=== PATIENT | female | born 1990 | race Caucasian/White ===

== ENCOUNTER 2017-10-09 00:45 | Emergency (ER) | payer OTHER ==
[2017-10-09] MEDS ORDERED: KETOROLAC 30 MG/ML 1 ML VIAL IVP STA (01:07)
[2017-10-09] MEDS ORDERED: SODIUM CHLORIDE 0.9% 1,000 ML IV STA (01:07)
[2017-10-09 01:46] LABS: Basophils % (A) 1 %; Eosinophils # (A) 0.2 k/uL (0-0.7); Eosinophils % (A) 2 %; HGB 12.1 gm/dL (11.4-16.0); Lymphocytes % (A) 30 %; MCH 29.7 pg (25.0-35.0); MCHC 31.9 g/dL (31.0-37.0); Mean Platelet Volume 10.2; Monocytes # (A) 0.4 k/uL (0-1.0); Monocytes % (A) 5 %; Neutrophils % (A) 60 %; Platelet Count 122 k/uL (150-450); RBC 4.09 m/uL (3.80-5.40); RDW 12.4 % (11.5-15.5); WBC 6.7 k/uL (3.8-10.6)
[2017-10-09 01:50] LABS: Appearance,Urine Cloudy (Clear); Bilirubin,Urine Negative (Negative); Blood,Urine Moderate (Negative); Color,Urine Yellow; Glucose,Urine (UA) Negative (Negative); Ketones,Urine Negative (Negative); Leukocyte Esterase,Urine Moderate (Negative); Mucus,Urine Occasional /hpf; Nitrite,Urine Negative (Negative); Protein,Urine 1+ (Negative); RBC,Urine 4 /hpf (0-5); Specific Gravity,Urine 1.029 (1.001-1.035); Squamous Epithelial Cell,Urine 22 /hpf (0-4); WBC,Urine 30 /hpf (0-5)
[2017-10-09 02:00] LABS: ALT 29 U/L (9-52); AST 19 U/L (14-36); Albumin 4.1 g/dL (3.5-5.0); Alkaline Phosphatase 54 U/L (38-126); Anion Gap 12 mmol/L; Blood Urea Nitrogen 14 mg/dL (7-17); Carbon Dioxide 22 mmol/L (22-30); Chloride 110 mmol/L (98-107); Glucose 92 mg/dL (74-99); Potassium 3.8 mmol/L (3.5-5.1); Sodium 144 mmol/L (137-145); Total Bilirubin 0.2 mg/dL (0.2-1.3); Total Protein 6.5 g/dL (6.3-8.2)
--- NOTE | 2017-10-09 02:00 | CT ---
EXAMINATION TYPE: CT brain wo con DATE OF EXAM: 10/09/2017 COMPARISON: NONE HISTORY: Headache and dizziness CT DLP: 1029.90 mGycm. Automated Exposure Control for Dose Reduction was Utilized. TECHNIQUE: CT scan of the head is performed without contrast. FINDINGS: Ventricles and sulci appear normal. There is no mass effect nor midline shift. There is n o sign of intracranial hemorrhage. Calvarium appears normal. Cerebellar tonsils project up to the for amen magnum. CONCLUSION: Cerebellar tonsils extend down to the foramen magnum. I think this is slightly less than a Chiari mal formation. Otherwise negative exam.
[2017-10-09 02:56] VITALS: BP 117/65; PULSE 70; RESP 16; TEMP 98.5
--- NOTE | 2017-10-09 03:15 | ED ---
Headache HPI - General Chief Complaint: Headache Stated Complaint: Headache, Dizziness Time Seen by Provider: 10/09/17 00:58 Mode of arrival: ambulatory Limitations: no limitations - History of Present Illness Initial Comments: 27-year-old male patient presents to the emergency department today for evaluation of headache 3 days. Patient states that the headache has been more intense over the last couple of days with most of the pain being present over her left eye and the left side of her head. Patient states he is also had some blurred vision with black spots during this. States that she has had episodes of dizziness upon standing as well. Patient denies any fever or chills. Denies any nasal congestion, sore throat, cough, or fevers. Denies any history of headaches. Denies any nausea, vomiting, weakness, numbness, or tingling with this. Patient denies any recent rash, shortness breath, chest pain, abdominal pain, diarrhea, constipation, back pain, hematuria, dysuria, urinary urgency, urinary frequency, headache, visual changes, or any other complaints. Denies any chance of , states she has had a tubal ligation and is currently on her period. - Related Data Home Medications Medication Instructions Recorded Confirmed No Known Home Medications [No 10/09/17 10/09/17 Known Home Medications] Allergies Allergy/AdvReac Type Severity Reaction Status Date / Time No Known Allergies Allergy Verified 10/09/17 00:54 Review of Systems ROS Statement: Those systems with pertinent positive or pertinent negative responses have been documented in the HPI. ROS Other: All systems not noted in ROS Statement are negative. Past Medical History Past Medical History: No Reported History History of Any Multi-Drug Resistant Organisms: None Reported Past Surgical History: Tubal Ligation Additional Past Surgical History / Comment(s): abdominal-IUD removal Past Psychological History: No Psychological Hx Reported Smoking Status: Current every day smoker Past Alcohol Use History: None Reported Past Drug Use History: None Reported General Exam Limitations: no limitations General appearance: alert, in no apparent distress, other (This is a well- developed, well-nourished adult female patient in no acute distress. Vital signs upon presentation are temperature 98.5F, pulse 91, respirations 16, blood pressure 137/72, pulse ox 100% on room air.) Eye exam: Present: normal appearance, PERRL, EOMI. Absent: scleral icterus, conjunctival injection, periorbital swelling ENT exam: Present: normal exam, normal oropharynx, mucous membranes moist Neck exam: Present: normal inspection, full ROM, other (Palpable lymph node to the left occipital region, less than 1 cm.). Absent: tenderness, meningismus, lymphadenopathy Respiratory exam: Present: normal lung sounds bilaterally. Absent: respiratory distress, wheezes, rales, rhonchi, stridor Cardiovascular Exam: Present: regular rate, normal rhythm, normal heart sounds. Absent: systolic murmur, diastolic murmur, rubs, gallop, clicks GI/Abdominal exam: Present: soft, normal bowel sounds. Absent: distended, tenderness, guarding, rebound, rigid Neurological exam: Present: alert, oriented X3, CN II-XII intact Psychiatric exam: Present: normal affect, normal mood Skin exam: Present: warm, dry, intact, normal color. Absent: rash Course Vital Signs 10/09/17 10/09/17 10/09/17 00:49 00:58 02:53 Temperature 98.5 F 98.1 F 98.5 F Pulse Rate 91 94 70 Respiratory 16 14 16 Rate Blood Pressure 137/72 109/58 117/65 O2 Sat by Pulse 100 100 98 Oximetry Medical Decision Making - Medical Decision Making 27-year-old female patient presents to the emergency department today for complaints of headache 3 days. Physical examination is unremarkable. Patient is neurologically intact. Labs reviewed and were unremarkable. Urinalysis is consistent with current menses. CT of the brain was performed and did show the cerebellar tonsils protruding down into the foramen magnum. Impression by Dr. Mayes shows that this is slightly less than a chiari malformation. I did discuss the findings with the patient. Did discuss importance of follow-up with neurology for further evaluation. Return parameters were discussed in detail. She verbalizes understanding and agreed with this plan. - Lab Data Result diagrams: 10/09/17 01:30 10/09/17 01:30 Lab Results 10/09/17 10/09/17 10/09/17 Range/Units 01:30 01:30 01:30 WBC 6.7 (3.8-10.6) k/uL RBC 4.09 (3.80-5.40) m/uL Hgb 12.1 (11.4-16.0) gm/dL Hct 38.0 (34.0-46.0) % MCV 93.0 (80.0-100.0) fL MCH 29.7 (25.0-35.0) pg MCHC 31.9 (31.0-37.0) g/dL RDW 12.4 (11.5-15.5) % Plt Count 122 L (150-450) k/uL Neutrophils % 60 % Lymphocytes % 30 % Monocytes % 5 % Eosinophils % 2 % Basophils % 1 % Neutrophils # 4.0 (1.3-7.7) k/uL Lymphocytes # 2.0 (1.0-4.8) k/uL Monocytes # 0.4 (0-1.0) k/uL Eosinophils # 0.2 (0-0.7) k/uL Basophils # 0.0 (0-0.2) k/uL Sodium 144 (137-145) mmol/L Potassium 3.8 (3.5-5.1) mmol/L Chloride 110 H (98-107) mmol/L Carbon Dioxide 22 (22-30) mmol/L Anion Gap 12 mmol/L BUN 14 (7-17) mg/dL Creatinine 0.70 (0.52-1.04) mg/dL Est GFR (CKD-EPI)AfAm >90 (>60 ml/min/1.73 sqM) Est GFR (CKD-EPI)NonAf >90 (>60 ml/min/1.73 sqM) Glucose 92 (74-99) mg/dL Calcium 9.0 (8.4-10.2) mg/dL Total Bilirubin 0.2 (0.2-1.3) mg/dL AST 19 (14-36) U/L ALT 29 (9-52) U/L Alkaline Phosphatase 54 (38-126) U/L Total Protein 6.5 (6.3-8.2) g/dL Albumin 4.1 (3.5-5.0) g/dL Urine Color Yellow Urine Appearance Cloudy H (Clear) Urine pH 7.0 (5.0-8.0) Ur Specific [place] 1.029 (1.001-1.035) Urine Protein 1+ H (Negative) Urine Glucose (UA) Negative (Negative) Urine Ketones Negative (Negative) Urine Blood Moderate H (Negative) Urine Nitrite Negative (Negative) Urine Bilirubin Negative (Negative) Urine Urobilinogen 3.0 (<2.0) mg/dL Ur Leukocyte Esterase Moderate H (Negative) Urine RBC 4 (0-5) /hpf Urine WBC 30 H (0-5) /hpf Ur Squamous Epith Cells 22 H (0-4) /hpf Urine Mucus Occasional H (None) /hpf - Radiology Data Radiology results: report reviewed, image reviewed CT of the head is performed without contrast. Findings show ventricles and sulci appear normal. There is no mass effect or midline shift. There is no sign of intracranial hemorrhage. Calvarium appears normal. Cerebellar tonsils project up into the forearm and magnum. Conclusion by Dr. Mayes shows cerebellar tonsils extending down to the forearm and magnum. I think this is slightly less than the Chiari malformation. Otherwise negative exam. Disposition Clinical Impression: Headache Disposition: HOME SELF-CARE Condition: Good Instructions: Acute Headache (ED) Additional Instructions: CT results showed possible Arnold Chiari Malformation. Follow up with neurology for re-evaluation as soon as possible. Return here immediately for any new, worsening or concerning symptoms. Is patient prescribed a controlled substance at d/c from ED?: No Referrals: Lan Haney Jr, DO [Primary Care Provider] - 1-2 days Ekaterina Garrett MD [STAFF PHYSICIAN] - 1-2 days Time of Disposition: 03:15
== END 2017-10-09 03:36 | disposition home or self-care (01) ==
LOC: EC 00:45
DX: R51 Headache (principal); R42 Dizziness and giddiness; H53.8 Other visual disturbances; F17.200 Nicotine dependence, unspecified, uncomplicated
CPT/HCPCS: 36415; 80053; 85025; 81001; 70450; 99284; 96374; 96361; J1885

== ENCOUNTER 2018-03-21 18:37 | Emergency (ER) | payer OTHER ==
[2018-03-21 18:57] VITALS: RESP 18
--- NOTE | 2018-03-21 19:26 | ED ---
Head Injury HPI - General Chief complaint: Head Injury Stated complaint: Head Injury Time Seen by Provider: 03/21/18 18:57 Source: patient, RN notes reviewed Mode of arrival: ambulatory Limitations: no limitations - History of Present Illness Initial comments: This is a 27-year-old female who presents to the emergency department with chief complaint of head injury. Patient states between noon and 1 PM this afternoon she was walking her dog outside. She states that the leash tripped her and she fell backwards, hitting the back of her head on the ground. Patient is accompanied by her stepson who contributes to history. He states that patient's head hit the ground, bounced back up and hit the ground a second time. He states that patient appeared dazed and was not making sense. He states that she attempted to go to sleep right there on the ground. He states that patient made her way to the house and went to sleep. Patient states that when her returned home he attempted to wake her up and he had difficulty doing so. Patient reports a generalized headache. She denies any dizziness, nausea or vomiting. Patient's stepson states that she did not fully lose consciousness. Patient states that a few months ago she was diagnosed with Chiari malformation. She states that she was supposed to follow up with a neurologist but was unable to do so because her insurance changed. Patient denies any fevers or chills, chest pain or shortness of breath. - Related Data Home Medications Medication Instructions Recorded Confirmed No Known Home Medications 10/09/17 10/09/17 Allergies/Adverse reactions: Allergies Allergy/AdvReac Type Severity Reaction Status Date / Time No Known Allergies Allergy Verified 10/09/17 00:54 Review of Systems ROS Statement: Those systems with pertinent positive or pertinent negative responses have been documented in the HPI. ROS Other: All systems not noted in ROS Statement are negative. Past Medical History Past Medical History: No Reported History History of Any Multi-Drug Resistant Organisms: None Reported Past Surgical History: Tubal Ligation Additional Past Surgical History / Comment(s): abdominal-IUD removal Past Psychological History: No Psychological Hx Reported Smoking Status: Current every day smoker Past Alcohol Use History: Rare Past Drug Use History: None Reported General Exam - General Exam Comments Initial Comments: General: Awake and alert, well-developed; in no apparent distress. Speech is soft and slow. HEENT: Head atraumatic, normocephalic. Pupils are equal, round and reactive to light. Extraocular movements intact. Oropharynx moist without erythema or exudate. Neck: Supple. Normal ROM. Cardiovascular: Regular rate and rhythm. No murmurs, rubs or gallops. Chest symmetrical. Respiratory: Lungs clear to auscultation bilaterally. No wheezes, rales or rhonchi. Normal respiratory effort with no use of accessory muscles. Musculoskeletal: Normal ROM, no tenderness, strength 5/5 bilateral upper and lower extremities. Ambulating normally. Skin: [place], warm and dry without rashes or lesions. Neurological: Alert and oriented x3. CN II-XII grossly intact. Speech is fluent and answers are appropriate. No focal neuro deficits. Romberg negative. Heel- to-eastman testing normal. Finger-nose testing normal. Rapid alternating movements normal. Psychiatric: Normal mood and affect. No overt signs of depression or anxiety noted. Limitations: no limitations Course Vital Signs 03/21/18 18:53 Temperature 98.4 F Pulse Rate 96 Respiratory 18 Rate Blood Pressure 123/81 O2 Sat by Pulse 100 Oximetry Medical Decision Making - Medical Decision Making This is a 27-year-old female who presents to the emergency department chief complaint of head injury. Patient reports feeling backwards earlier today and hitting the back of her head on the ground. Her substernal reports that she was dazed, was not making sense and was difficult to arouse while sleeping. Patient reports a generalized headache. Denies loss of consciousness, nausea or vomiting, dizziness. She does report a history of Chiari malformation. There are no focal neuro deficits on physical examination. A computed tomography scan of the brain was obtained which revealed no acute abnormalities. Patient likely suffering from a concussion. Return parameters were discussed. Patient is in no acute distress and will be discharged home at this time. She is in agreement and voices understanding. All questions answered. - Radiology Data Radiology results: report reviewed CT brain without contrast impression: Negative computed tomography scan of the brain. No change. Disposition Clinical Impression: Concussion without loss of consciousness Disposition: HOME SELF-CARE Condition: Good Instructions: Concussion (ED) Additional Instructions: Please follow up with primary care provider within 1-2 days. Return to emergency department if symptoms should worsen or any concerns arise. Is patient prescribed a controlled substance at d/c from ED?: No Referrals: Lan Haney Jr, DO [Primary Care Provider] - 1-2 days Time of Disposition: 19:52
--- NOTE | 2018-03-21 19:33 | CT ---
EXAMINATION TYPE: CT brain wo con DATE OF EXAM: 03/21/2018 COMPARISON: 10/09/2017 HISTORY: CHERRY AFTER FALL WITH HEAD INJURY CT DLP: 913.3 mGycm. Automated Exposure Control for Dose Reduction was Utilized. TECHNIQUE: CT scan of the head is performed without contrast. FINDINGS: Ventricles and sulci appear normal. There is no mass effect nor midline shift. There is no sign of intracranial hemorrhage. The calvarium is intact. IMPRESSION: Negative CT scan of the brain. No change.
[2018-03-21 19:59] VITALS: BP 107/55; PULSE 74; TEMP 97.8
== END 2018-03-21 19:59 | disposition home or self-care (01) ==
LOC: EC 18:37
DX: S06.0X0A Concussion without loss of consciousness, initial encounter (principal); F17.200 Nicotine dependence, unspecified, uncomplicated; Z87.798 Personal history of other (corrected) congenital malformations; W01.10XA Fall on same level from slipping, tripping and stumbling with subsequent striking against unspecified object, initial encounter; Y93.K1 Activity, walking an animal; Y92.89 Other specified places as the place of occurrence of the external cause
CPT/HCPCS: 70450; 99283

== ENCOUNTER → 2019-02-09 | Outpatient (CLI) | payer OTHER ==
[2019-02-09 14:10] LABS: HCT 42.6 % (34.0-46.0); HGB 13.8 gm/dL (11.4-16.0); MCH 31.2 pg (25.0-35.0); MCHC 32.4 g/dL (31.0-37.0); MCV 96.2 fL (80.0-100.0); Mean Platelet Volume 9.8; Platelet Count 142 k/uL (150-450); RBC 4.42 m/uL (3.80-5.40); RDW 12.7 % (11.5-15.5); WBC 7.2 k/uL (3.8-10.6)
[2019-02-09 14:30] LABS: African American GFR (CKD) >90 (>60 ml/min/1.73 sqM); Anion Gap 7 mmol/L; Blood Urea Nitrogen 11 mg/dL (7-17); Calcium 9.9 mg/dL (8.4-10.2); Carbon Dioxide 30 mmol/L (22-30); Chloride 104 mmol/L (98-107); Glucose 64 mg/dL (74-99); Non-African American GFR(CKD) >90 (>60 ml/min/1.73 sqM); Potassium 4.2 mmol/L (3.5-5.1); Sodium 141 mmol/L (137-145)
== END | disposition home or self-care (01) ==
LOC: LABPAT 13:39
PROVIDERS: ATTEND Podiatrist Foot & Ankle Surgery
DX: Z01.812 Encounter for preprocedural laboratory examination (principal)
CPT/HCPCS: 36415; 80048; 85027

== ENCOUNTER 2019-02-16 13:48 | Day surgery (SDC) | payer OTHER ==
[2019-02-11 15:10] VITALS: BMI 23.0
[~2019-02-16 13:48] MED LIST: DEXAMETHASONE SOD PHOSPHATE 10 MG/ML 1 ML VIAL IV ONE; LACTATED RINGERS 1,000 ML IV SCH; LIDOCAINE 1% 20 ML VIAL (10MG/ML) FOR IV START INTRADERMA PRN; MIDAZOLAM 2 MG/2 ML VIAL IV PRN; ONDANSETRON 4 MG/2 ML VIAL IVP ONE; Pre Op ABX Message 1 EACH MISC MISCELLANE ONE; fentaNYL (PF) 50 MCG/ML 2 ML AMP IV PRN
[2019-02-16 14:19] VITALS: RESP 16; TEMP 98
[2019-02-16] MEDS ORDERED: LIDOCAINE 1% INJ 10MG/ML (20 ML MDV) ONE (14:55)
[2019-02-16] MEDS ORDERED: fentaNYL (PF) 50 MCG/ML 2 ML AMP ONE (14:55)
[2019-02-16] MEDS ORDERED: MIDAZOLAM 2 MG/2 ML VIAL ONE (14:55)
[2019-02-16] MEDS ORDERED: PROPOFOL 10 MG/ML 20 ML VIAL IV ONE (14:55)
--- NOTE | 2019-02-16 15:44 | P.OP ---
Date of Procedure: 02/16/19 Preoperative Diagnosis: Plantar declination did fifth metatarsal right foot Postoperative Diagnosis: Same Procedure(s) Performed: V metatarsal elevating osteotomy fifth metatarsal right foot Surgeon: Dariel Adam Operative Findings: Unremarkable Description of Procedure: On the date of surgery the patient was taken to the operating room in good condition placed on the operating table in supine position where an IV was started. IV anesthetic agents were then utilized. Anesthesia was then supplemented with approximately 10 mL of 5% ropivacaine given in a Marsh block to the fifth ray complex of the patient's right foot. The patient's right foot and ankle were then prepped and draped in the usual aseptic manner At this point in time attention was directed to the right foot where the patient's right foot was elevated and exsanguinated of blood utilizing an Esmarch bandage and the ankle tourniquet to the right ankle was inflated to approximately 250 mmHg At this time attention was directed to the dorsal aspect of the distal one third of the shaft of the fifth metatarsal where an approximately 3 cm dorsolinear incision was made. The incision was deepened via sharp dissection down through the level of the subcutaneous tissue layers. All neurovascular structures encountered were identified isolated and were retracted and any bleeding vessels were clamped and electrocauterized. Throughout the surgical procedure copious amounts sterile saline solution was used to irrigate the surgical site Dissection was carried deep down to the level of the periosteal structures overlying the distal aspect of the fifth metatarsal these were incised in line with the original skin incision and underscored and retracted from the underlying bone the extensor digitorum longus tendon to the fifth toe was retracted medially. This exposed the metaphysis of the bone were using an oscillating bone saw a V osteotomy was performed at the level of the metaphysis this was a dorsal to plantar V osteotomy and upon completion of the osteotomy the capital fragment was displaced dorsally by approximately 2-3 mm it was impacted back upon the spike created by the osteotomy in fixated with a 0.045 K wire Periosteal Structures Were Then Coaptated and Maintained Utilizing 3-0 Vicryl Simple Interrupted Suture Subcutaneous Tissue Layers Were Coaptated and Maintained Utilizing 3-0 Vicryl Simple Interrupted Suture and the Skin Was Then Closed Utilizing 4-0 Nylon Simple Interrupted Suture. Adaptic Kerlix Fluffs four-inch conformer and 4 inch Coban was used to form a compression dressing and the ankle tourniquet to the patient's right ankle was deflated adequate hemostatic return was seen in all digits of the patient's right foot specifically the fifth digit the patient tolerated the surgery and anesthesia well was taken to the recovery room in good postoperative condition.
[2019-02-16 15:48] VITALS: BP 108/61; PULSE 77
== END 2019-02-16 16:30 | disposition home or self-care (01) ==
LOC: OR 13:48
PROVIDERS: ATTEND Podiatrist Foot & Ankle Surgery
DX: M21.6X1 Other acquired deformities of right foot (principal); Z82.3 Family history of stroke; M19.90 Unspecified osteoarthritis, unspecified site; Z98.51 Tubal ligation status; F17.210 Nicotine dependence, cigarettes, uncomplicated
CPT/HCPCS: 81025; 28308; J2250; J1100; J2405; J0694; J2001; J3010; J2704

== ENCOUNTER 2020-04-08 20:38 | Emergency (ER) | payer OTHER ==
--- NOTE | 2020-04-08 22:28 | XR ---
EXAMINATION TYPE: XR chest 2V DATE OF EXAM: 04/08/2020 COMPARISON: 04/24/2017 HISTORY: Chest tightness TECHNIQUE: FINDINGS: Heart and mediastinum are normal. Lungs are clear. Diaphragm is normal. Bony thorax appears normal. IMPRESSION: Normal chest. No change.
[2020-04-08 22:31] VITALS: BP 122/84; PULSE 82; RESP 18
--- NOTE | 2020-04-08 22:53 | ED ---
General Adult HPI - General Chief complaint: Chest Pain Stated complaint: Chest Pain Time Seen by Provider: 04/08/20 21:32 Source: patient Mode of arrival: ambulatory Limitations: no limitations - History of Present Illness Initial comments: Patient is a 30-year-old female presenting to the emergency Department with complaints of chest tightness that has been intermittent for the last 3-4 hours. Patient states she was sitting on the couch watching TV when she felt a little bit of tightness. Patient states she got up and made dinner and it was coming and going. She states she also has intermittent tingling into her left hand however she states this has been ongoing for months. She states she did see a neurologist in the past and was supposed to have more testing done however she lost her insurance and now that she has a back she has been unable to find time for an appointment. Patient denies any shortness of breath, fever, chills, cough, chest congestion. She denies history of asthma or heart disease. She denies family history of sudden heart rate at . She denies being secondary to tubal ligation. She states now she feels fine, no complaints at this time. She denies any injuries to her neck or shoulder. She has no further complaints at this time. Upon arrival to the ER, her vital signs are stable. - Related Data Home Medications Medication Instructions Recorded Confirmed Acetaminophen Tab [Tylenol Tab] 1,000 mg PO Q6HR PRN 04/08/20 04/08/20 Allergies Allergy/AdvReac Type Severity Reaction Status Date / Time No Known Allergies Allergy Verified 04/08/20 21:41 Review of Systems ROS Statement: Those systems with pertinent positive or pertinent negative responses have been documented in the HPI. ROS Other: All systems not noted in ROS Statement are negative. Past Medical History Past Medical History: No Reported History History of Any Multi-Drug Resistant Organisms: None Reported Past Surgical History: Tubal Ligation Additional Past Surgical History / Comment(s): abdominal-IUD removal. fot surgery Rt Past Psychological History: No Psychological Hx Reported Smoking Status: Current every day smoker Past Alcohol Use History: Rare Past Drug Use History: None Reported General Exam - General Exam Comments Initial Comments: GENERAL: Patient is well-developed and well-nourished. Patient is nontoxic and in no acute distress. HEAD: Atraumatic, normocephalic. EYES: Pupils equal round and reactive to light, extraocular movements intact, sclera anicteric, conjunctiva are normal. Eyelids were unremarkable. ENT: TMs normal, nares patent, oropharynx clear without exudates. Moist mucous membranes. NECK: Normal range of motion, supple without lymphadenopathy or JVD. LUNGS: Unlabored respirations. Breath sounds clear to auscultation bilaterally and equal. No wheezes rales or rhonchi. HEART: Regular rate and rhythm without murmurs, rubs or gallops. ABDOMEN: Soft, nontender, normoactive bowel sounds. No guarding, no rebound. No masses appreciated. : Deferred MUSCULOSKELETAL: Normal extremities with adequate strength and normal range of motion, no pitting or edema. No clubbing or cyanosis. NEUROLOGICAL: Patient is alert and oriented x 3. Motor and sensory are also intact. Cranial nerves II through XII grossly intact. Symmetrical smile. Normal speech, normal gait. PSYCH: Normal mood, normal affect. SKIN: Warm, Dry, normal turgor, no rashes or lesions noted. Limitations: no limitations Course Vital Signs 04/08/20 04/08/20 04/08/20 20:42 21:22 21:30 Pulse Rate 85 Respiratory 16 18 Rate Blood Pressure 134/90 122/85 122/85 O2 Sat by Pulse 100 99 98 Oximetry 04/08/20 22:00 Pulse Rate 82 Respiratory 18 Rate Blood Pressure 122/84 O2 Sat by Pulse 98 Oximetry EKG Findings - EKG Comments: EKG Findings:: Normal sinus rhythm, normal ECG. Ventricular rate 83, NV interval 158, QT 356. No signs of acute ischemia. Medical Decision Making - Medical Decision Making Patient is a 30-year-old female here for intermittent chest tightness that happe brigida 3-4 hours prior to arrival. She also has chronic left hand tingling x years. She has no history of asthma, heart disease, risk factors for PE. Her vital signs are stable, her exam is unremarkable, EKG shows no signs of acute ischemia. Chest x-ray is normal. Patient has been symptom free in the ER. I discussed with patient and her symptoms could be related to inflammation, anxiety. Recommended following up with her PCP. She is agreement with the plan of care. She is stable for discharge. Return parameters were discussed with the patient she verbalized understanding. Case discussed Dr. Green. Disposition Clinical Impression: Atypical chest pain Disposition: HOME SELF-CARE Condition: Stable Instructions (If sedation given, give patient instructions): Costochondritis (ED) Additional Instructions: Please return to the Emergency Department if symptoms worsen or any other concerns. EKG and chest x-ray today is normal, rest of exam is normal today. Follow-up with PCP as discussed. Is patient prescribed a controlled substance at d/c from ED?: No Referrals: Lan Haney Jr, DO [Primary Care Provider] - 1-2 days
== END 2020-04-08 23:16 | disposition home or self-care (01) ==
LOC: EC 20:38
DX: R07.89 Other chest pain (principal); R20.2 Paresthesia of skin; F17.200 Nicotine dependence, unspecified, uncomplicated; Z98.51 Tubal ligation status
CPT/HCPCS: 71046; 93005; 99285

== ENCOUNTER 2022-05-17 13:00 | Emergency (ER) | payer OTHER ==
[2022-05-17] MEDS ORDERED: IBUPROFEN 600 MG TAB PO STA (14:27)
--- NOTE | 2022-05-17 14:30 | ED ---
URI HPI - General Chief Complaint: Upper Respiratory Infection Stated Complaint: chest pain, chills/fever Time Seen by Provider: 05/17/22 14:08 Source: patient, RN notes reviewed Mode of arrival: ambulatory Limitations: no limitations - History of Present Illness Initial Comments: This is a 32-year-old female who presents to the emergency department for fevers, chills, and coughing. Symptoms have been present for 2 days. States that she is unable to sleep due to the coughing. Denies any difficulty breathing or history of respiratory illnesses such as asthma. She is not taking anything to treat her symptoms. She reports associated body aches, headaches, and a sore throat. 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 Denies any dyspnea, chest pain, palpitations, abdominal pain, nausea, vomiting, diarrhea, or back pain. MD Complaint: fever, cough, sore throat, nasal congestion Onset/Timin -: days(s) Associated Symptoms: chills, myalgias, headache Treatments Prior to Arrival: none - Related Data Home Medications Medication Instructions Recorded Confirmed Acetaminophen Tab [Tylenol Tab] 1,000 mg PO Q6HR PRN 04/08/20 04/08/20 Previous Rx's Medication Instructions Recorded Oseltamivir [Tamiflu] 75 mg PO Q12HR 5 Days #10 cap 05/17/22 Promethazine/Dextromethorphan 5 ml PO Q6H PRN #473 ml 05/17/22 [Promethazine-Dm Syrup] predniSONE 50 mg PO DAILY 5 Days #5 tablet 05/17/22 Allergies Allergy/AdvReac Type Severity Reaction Status Date / Time No Known Allergies Allergy Verified 05/17/22 13:18 Review of Systems ROS Statement: Those systems with pertinent positive or pertinent negative responses have been documented in the HPI. ROS Other: All systems not noted in ROS Statement are negative. Past Medical History Past Medical History: No Reported History History of Any Multi-Drug Resistant Organisms: None Reported Past Surgical History: Tubal Ligation Additional Past Surgical History / Comment(s): abdominal-IUD removal. fot surgery Rt Past Psychological History: Anxiety Smoking Status: Current every day smoker Past Alcohol Use History: Occasional Past Drug Use History: None Reported General Exam Limitations: no limitations General appearance: alert, in no apparent distress Head exam: Present: atraumatic, normocephalic, normal inspection ENT exam: Present: normal exam, mucous membranes moist Neck exam: Present: normal inspection. Absent: tenderness, meningismus, lymphadenopathy Respiratory exam: Present: normal lung sounds bilaterally. Absent: respiratory distress, wheezes, rales, rhonchi, stridor Cardiovascular Exam: Present: normal rhythm, tachycardia Neurological exam: Present: alert, oriented X3, CN II-XII intact Psychiatric exam: Present: normal affect, normal mood Skin exam: Present: warm, dry, intact, normal color. Absent: rash Course Vital Signs 05/17/22 05/17/22 05/17/22 13:14 15:46 15:50 Temperature 101.5 F H 103.1 F H Pulse Rate 115 H 99 Respiratory 20 20 22 Rate Blood Pressure 132/78 132/86 O2 Sat by Pulse 97 98 Oximetry Medical Decision Making - Medical Decision Making This is a 32-year-old female who presents to the emergency department for fevers, chills, and coughing. Patient tested positive for influenza A. She was febrile in the emergency department and given a dose of ibuprofen. Prescription for Tamiflu provided, as the patient is within the 72 hour window. She was also given a prescription for prednisone and promethazine DM cough syrup. Advised that the cough syrup can be sedating and is best taken at night. Also instructed her to avoid driving or operating machinery when taking this. Instructed her to take Tylenol as needed for fevers and to remain well-hydrated and get plenty of rest. Return precautions reviewed in depth, the patient is instructed to return to the emergency department with any new, worsening, or concerning symptoms. Patient verbalized understanding. This case was discussed in detail with the attending ED physician. Presentation, findings, and treatment plan discussed in detail as well. - Lab Data Lab Results 05/17/22 05/17/22 Range/Units 13:19 13:19 Coronavirus (PCR) Not Detected (Not Detectd) Influenza Type A RNA Detected H (Not Detectd) Influenza Type B (PCR) Not Detected (Not Detectd) Disposition Clinical Impression: Influenza A Disposition: HOME SELF-CARE Instructions (If sedation given, give patient instructions): Influenza (ED) Additional Instructions: Return to the emergency department with any new, worsening, or concerning symptoms. Take the prednisone and Tamiflu as prescribed for 5 days. Take Tylenol as needed for any fevers. You can take the cough syrup up to 4 times daily, however be aware that it can be sedating and you should avoid driving or operating machinery when taking this. Make sure that you remain well-hydrated and get plenty of rest. Warm steamy showers may also help open up your sinuses and improve symptoms. Follow up with your primary care provider in 1-2 days. Prescriptions: predniSONE 50 mg PO DAILY 5 Days #5 tablet Promethazine/Dextromethorphan [Promethazine-Dm Syrup] 5 ml PO Q6H PRN #473 ml PRN Reason: Cough Oseltamivir [Tamiflu] 75 mg PO Q12HR 5 Days #10 cap Is patient prescribed a controlled substance at d/c from ED?: No Referrals: Lan Haney Jr, [Primary Care Provider] - 1-2 days
[2022-05-17 15:50] VITALS: BP 132/86; PULSE 99; TEMP 103.1
[2022-05-17 15:51] VITALS: RESP 22
--- NOTE | 2022-05-18 08:36 | ED ---
Medical Decision Making - Lab Data Lab Results 05/17/22 05/17/22 Range/Units 13:19 13:19 Coronavirus (PCR) Not Detected (Not Detectd) Influenza Type A RNA Detected H (Not Detectd) Influenza Type B (PCR) Not Detected (Not Detectd) Disposition Clinical Impression: Influenza A Disposition: HOME SELF-CARE Instructions (If sedation given, give patient instructions): Influenza (ED) Additional Instructions: Return to the emergency department with any new, worsening, or concerning symptoms. Take the prednisone and Tamiflu as prescribed for 5 days. Take Tylenol as needed for any fevers. You can take the cough syrup up to 4 times daily, however be aware that it can be sedating and you should avoid driving or operating machinery when taking this. Make sure that you remain well-hydrated and get plenty of rest. Warm steamy showers may also help open up your sinuses and improve symptoms. Follow up with your primary care provider in 1-2 days. Prescriptions: predniSONE 50 mg PO DAILY 5 Days #5 tab Promethazine/Dextromethorphan [Promethazine-Dm 6.25-15 mg/5Ml] 5 ml PO Q6H 5 Days #100 ml Oseltamivir [Tamiflu] 75 mg PO Q12HR 5 Days #10 cap Is patient prescribed a controlled substance at d/c from ED?: No Referrals: Lan Haney Jr, [Primary Care Provider] - 1-2 days
== END 2022-05-17 15:51 | disposition home or self-care (01) ==
LOC: EC 13:00
DX: J10.1 Influenza due to other identified influenza virus with other respiratory manifestations (principal); F41.9 Anxiety disorder, unspecified; F17.200 Nicotine dependence, unspecified, uncomplicated; Z20.822 Contact with and (suspected) exposure to COVID-19
CPT/HCPCS: 87502; 87635; 99283; 99284